=== PATIENT | female | born 1985 | race Caucasian/White ===

== ENCOUNTER 2017-01-08 14:02 | Emergency (ER) | payer BC ==
[~2017-01-08 14:02] MED LIST: BACTRIM DS 8001 TA1 PO; BENTYL10 MG PO; BIRTH CONTROL PO; LEXAPRO20 M1 PO; NORCO 325 MG-51 TAB PO; PEN-VEE K500 MG PO; PEPCID 20MG TAB20 MG PO; SPRINTEC 35 MCG1 TAB PO; WELLBUTRIN SR100 MG PO; ZOLOFT100 MG PO
== END 2017-01-08 16:10 | disposition home or self-care (01) ==
LOC: ED 14:02
DX: J06.9 Acute upper respiratory infection, unspecified (principal); D64.9 Anemia, unspecified

== ENCOUNTER 2017-07-11 20:42 | Emergency (ER) | payer SELFPAY ==
[~2017-07-11] VITALS: Ht 172.7 cm; Wt 122.7 kg
[2017-07-11] MEDS ORDERED: AMOXIL500 M1 PO (21:42)
[2017-07-11] MEDS ORDERED: PERCOCET 325 MG1 TA2 PO (21:43)
[2017-07-11 21:57] VITALS: BP 127/91
== END 2017-07-11 21:57 | disposition home or self-care (01) ==
LOC: ED 20:42
DX: K04.7 Periapical abscess without sinus (principal); K08.89 Other specified disorders of teeth and supporting structures; K03.81 Cracked tooth; R68.84 Jaw pain; R51 Headache

== ENCOUNTER → 2018-07-10 | Outpatient (CLI) | payer BC ==
[~2018-07-10] MED LIST changes: +AMOXIL500 M1 PO; +PERCOCET 325 MG1 TA2 PO
[2018-07-10 14:28] LABS: EOS # 0.2 (0.04-0.40); EOS % 3.2 % (1.0-5.0); HEMATOCRIT 35.7 % (37.0-47.0); HEMOGLOBIN 11.2 g/dL (12.5-16.0); LYMPH# 2.8 (1.50-4.00); MEAN CELL VOLUME 78 fl (78-100); MEAN CORPUSCULAR HEMOGLOBIN 25 pg (27-31); MEAN CORPUSCULAR HGB CONC 31 g/dL (33-37); MONO # 0.4 (0.20-0.80); PLATELET COUNT 322 K/mm3 (130-400); RED BLOOD COUNT 4.58 M/mm3 (4.10-5.30); RED CELL DISTRIBUTION WIDTH 16.2 % (11.5-14.5); WHITE BLOOD COUNT 7.5 K/mm3 (4.8-10.8)
[2018-07-10 14:55] LABS: ALBUMIN 4.2 g/dL (3.5-5.0); CALCIUM 9.3 mg/dL (8.4-10.2); POTASSIUM 4.4 mmol/L (3.6-5.0); TOTAL BILIRUBIN 0.5 mg/dL (0.2-1.3); TOTAL PROTEIN 7.8 g/dL (6.3-8.2)
== END ==
LOC: RAD 14:02
PROVIDERS: Family Medicine
DX: G43.909 Migraine, unspecified, not intractable, without status migrainosus (principal); Z82.3 Family history of stroke